=== PATIENT | female | born 1965 | race Caucasian/White ===

== ENCOUNTER 2019-08-03 18:04 | Emergency (ER) | payer MEDICARE, MEDICAID ==
[2019-08-03] MEDS ORDERED: DOXYcycline CAP(*) 100 MG PO ONE (20:14)
--- NOTE | 2019-08-03 20:18 | ED ---
Skin Complaint - HPI Summary HPI Summary: 54 year old female presents with rash for the past couple months. But states rash seems to be getting close to her right eye. She states she has been on many courses of antibiotics by her primary. States she just has a course of Keflex on thursday which did not help her symptoms much. She denies any fevers or chills. 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 She is suppose to see dermatology on Thursday. She states there has been yellow crusty drainage from the wounds. She states she's been drying out the area with tea tree oil which seems to be helping. She denies any history of MRSA. She has no medical conditions. - History of Current Complaint Chief Complaint: EDRashSkinAbscess Time Seen by Provider: 08/03/19 20:01 Stated Complaint: RASH PER PT Pain Intensity: 0 - Allergy/Home Medications Allergies/Adverse Reactions: Allergies Allergy/AdvReac Type Severity Reaction Status Date / Time No Known Allergies Allergy Verified 08/03/19 18:10 Home Medications: Home Medications DOXYcycline CAP(*) [DOXYcycline 100MG CAP(*)] 100 mg PO BID #13 cap 08/03/19 [Rx ] Mupirocin 2% OINT* [Bactroban 2 % Oint*] 1 applic TOPICAL BID #1 tube 08/03/19 [ Rx] PMH/Surg Hx/FS Hx/Imm Hx Endocrine/Hematology History: Denies: Hx Anticoagulant Therapy Respiratory History: Denies: Hx Asthma - Cancer History Hx Chemotherapy: No Hx Radiation Therapy: No Infectious Disease History: No Infectious Disease History: Denies: Traveled Outside the [place] in Last 30 Days - Family History Known Family History: Positive: Non-Contributory - Social History Substance Use Type: Reports: None Smoking Status (MU): Unknown if Ever Smoked Review of Systems Negative: Fever Negative: Chest Pain Negative: Shortness Of Breath Positive: Rash All Other Systems Reviewed And Are Negative: Yes Physical Exam Triage Information Reviewed: Yes Vital Signs On Initial Exam: Initial Vitals Temp Pulse Resp BP Pulse Ox 99.0 F 90 16 157/94 99 08/03/19 18:07 08/03/19 18:07 08/03/19 18:07 08/03/19 18:07 08/03/19 18:07 Vital Signs Reviewed: Yes Appearance: Positive: Well-Appearing Skin: Positive: Warm, Dry, Other - papular and pustular rash with surrounding erythema to face, no erythema around eye Head/Face: Positive: Normal Head/Face Inspection Eyes: Positive: Normal, Conjunctiva Clear ENT: Positive: Pharynx normal Respiratory/Lung Sounds: Positive: Clear to Auscultation, Breath Sounds Present Cardiovascular: Positive: Normal, RRR Musculoskeletal: Positive: Normal Neurological: Positive: Normal Psychiatric: Positive: Normal Procedures - Sedation Patient Received Moderate/Deep Sedation with Procedure: No Diagnostics - Vital Signs Vital Signs Temp Pulse Resp BP Pulse Ox 08/03/19 18:07 99.0 F 90 16 157/94 99 - Laboratory Lab Statement: Any lab studies that have been ordered have been reviewed, and results considered in the medical decision making process. Course/Dx - Course Course Of Treatment: 54 year old female presents with rash for the past couple months. But states rash seems to be getting close to her right eye. She states she has been on many courses of antibiotics by her primary. States she just has a course of Keflex on thursday which did not help her symptoms much. She denies any fevers or chills. 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 She is suppose to see dermatology on Thursday. She states there has been yellow crusty drainage from the wounds. She states she's been drying out the area with tea tree oil which seems to be helping. She denies any history of MRSA. She has no medical conditions. On exam has papular and pustular lesions across face with some surrounding erythema. No signs of periorbial cellulitis. We'll try treatment with a course of doxycycline and have apply mupirocin. Told to follow dermatology. Patient understands and agrees with the plan. - Differential Diagnoses - Skin Complaint Differential Diagnoses: Abscess, Cellulitis, Contact Dermatitis - Diagnoses Provider Diagnoses: Rash Discharge ED - Sign-Out/Discharge Documenting (check all that apply): Patient Departure - Discharge Plan Condition: Good Disposition: HOME Prescriptions: DOXYcycline CAP(*) [DOXYcycline 100MG CAP(*)] 100 mg PO BID #13 cap Mupirocin 2% OINT* [Bactroban 2 % Oint*] 1 applic TOPICAL BID #1 tube Referrals: Joanne Hyman MD [Primary Care Provider] - Additional Instructions: take doxycycline twice a day for 7 days apply mupirocin twice a day follow up with primary within 5 days Return to ED if develop any new or worsening symptoms - Billing Disposition and Condition Condition: GOOD Disposition: Home
[2019-08-03 21:15] VITALS: BP 131/83
== END 2019-08-03 21:06 | disposition home or self-care (01) ==
LOC: ED 18:04
DX: R21 Rash and other nonspecific skin eruption (principal)
CPT/HCPCS: 99282; A9270-GY

== ENCOUNTER 2023-07-08 01:58 | Inpatient (IN) ==
[2023-07-08 02:29] LABS: ABS Basophils 0.1 10^3/uL (0.0-0.1); ABS Eosinophils 0.5 10^3/uL (0.0-0.5); ABS Lymphocytes 3.7 10^3/uL (1.0-4.8); ABS Monocytes 0.6 10^3/uL (0.0-0.9); ABS Nucleated RBC 0.01 10^3/ul; Eosinophil % 5.3 %; Hemoglobin 14.9 g/dL (11.5-14.3); Lymphocyte % 37.3 %; Mean Corpuscular Hemoglobin 30.2 pg (27-33); Mean Corpuscular Hgb Conc 34.6 g/dL (31-36); Mean Corpuscular Volume 87.2 fL (80-97); Mean Platelet Volume 7.3 fL (7.5-11.2); Nucleated Red Blood Cells % 0.1 %/100WBC (0.0-0.8); Platelet Count 331 10^3/uL (150-450); Red Blood Count 4.94 10^6/uL (3.63-4.92); Red Cell Distribution Width 14.1 % (12-17)
[2023-07-08 03:01] LABS: ALT 30 U/L (7-52); Albumin 3.6 g/dL (3.2-5.2); Albumin/Globulin Ratio 1.2 (1-3); Alkaline Phosphatase 100 U/L (35-149); Anion Gap 9 mmol/L (2-16); Blood Urea Nitrogen 9 mg/dL (6-24); C Reactive Protein 10.22 mg/L (<8.01); CO2 Carbon Dioxide 20 mmol/L (22-32); Calcium 8.1 mg/dL (8.6-10.3); Chloride 110 mmol/L (101-111); Creatinine, Serum 0.71 mg/dL (0.51-0.95); Glucose 114 mg/dL (70-100); Sodium 139 mmol/L (135-145); Total Bilirubin 0.6 mg/dL (0.2-1.0); Total Protein 6.6 g/dL (6.4-8.9); eGFR CKD-EPI 99.1 (>60)
[2023-07-08] MEDS ORDERED: Albuterol HFA INHALER 8 gm MDI INH PRN (04:42)
[2023-07-08] MEDS: Enoxaparin 40 MG/0.4 ML SYR SUBCUT SCH (06:05)
[2023-07-08] MEDS: Magnesium Sulfate 2 gm BAG 2 GM/50 ML BAG IVPB ONE (07:18)
[2023-07-08] MEDS: Albuterol/Ipratropium NEB.SOL (2.5/0.5 MG) 3 ML NEB.SOLN INH SCH ×2 (08:08→13:02)
[2023-07-08] MEDS: methylPREDNISolone SOD SUCC 125 mg 2 ML VIAL IV ONE (10:05)
[2023-07-08] MEDS ORDERED: Albuterol/Ipratropium NEB.SOL (2.5/0.5 MG) 3 ML NEB.SOLN INH PRN (16:21)
[2023-07-08] MEDS ORDERED: methylPREDNISolone SOD SUCC 40 mg/ml 1 ml VIAL IV SCH (17:00)
[2023-07-08] MEDS: Iohexol 350 (CONTRAST) 500 ML MDV IV ONE (19:44)
[2023-07-08] MEDS: methylPREDNISolone SOD SUCC 40 mg/ml 1 ml VIAL IV SCH (20:13)
[2023-07-09 06:35] LABS: Hematocrit 43.6 % (35-45); Hemoglobin 14.3 g/dL (11.5-14.3); Mean Corpuscular Hemoglobin 28.9 pg (27-33); Mean Corpuscular Hgb Conc 32.9 g/dL (31-36); Mean Corpuscular Volume 87.8 fL (80-97); Mean Platelet Volume 7.6 fL (7.5-11.2); Platelet Count 334 10^3/uL (150-450); Red Blood Count 4.96 10^6/uL (3.63-4.92); Red Cell Distribution Width 13.9 % (12-17); White Blood Count 25.2 10^3/uL (3.8-11.8)
[2023-07-09 06:53] LABS: Calcium 9.9 mg/dL (8.6-10.3); Creatinine, Serum 0.75 mg/dL (0.51-0.95); Magnesium 2.4 mg/dL (1.9-2.7); Phosphorus 3.2 mg/dL (2.5-5.0); Potassium 4.3 mmol/L (3.5-5.0); eGFR CKD-EPI 92.8 (>60)
[2023-07-09 09:47] LABS: ABS Lymphocytes 2.1 10^3/uL (1.0-4.8); ABS Monocytes 0.8 10^3/uL (0.0-0.9); ABS Neutrophils 22.2 10^3/uL (1.5-7.6); ABS Nucleated RBC 0.01 10^3/ul; Lymphocyte % 8.3 %
[2023-07-09] MEDS: methylPREDNISolone SOD SUCC 40 mg/ml 1 ml VIAL IV SCH (10:09)
[2023-07-09] MEDS: Albuterol/Ipratropium NEB.SOL (2.5/0.5 MG) 3 ML NEB.SOLN INH SCH (10:58)
[2023-07-09] MEDS: Albuterol HFA INHALER 8 gm MDI INH PRN (21:25)
[2023-07-10 05:23] LABS: Hematocrit 41.8 % (35-45); Hemoglobin 13.4 g/dL (11.5-14.3); Mean Corpuscular Hemoglobin 29.5 pg (27-33); Mean Corpuscular Volume 92.2 fL (80-97); Red Blood Count 4.53 10^6/uL (3.63-4.92); Red Cell Distribution Width 15.3 % (12-17); White Blood Count 19.7 10^3/uL (3.8-11.8)
[2023-07-10 06:09] LABS: ABS Lymphocytes 1.3 10^3/uL (1.0-4.8); ABS Monocytes 0.6 10^3/uL (0.0-0.9); ABS Neutrophils 17.8 10^3/uL (1.5-7.6); Lymphocyte % 6.6 %; Tear Drop Cells 3+
[2023-07-10 07:15] LABS: Calcium 9.7 mg/dL (8.6-10.3); Creatinine, Serum 0.76 mg/dL (0.51-0.95); Magnesium 2.3 mg/dL (1.9-2.7); Phosphorus 3.1 mg/dL (2.5-5.0); Potassium 4.5 mmol/L (3.5-5.0); eGFR CKD-EPI 91.3 (>60)
[2023-07-10 15:13] VITALS: BP 118/68
[2023-07-11] MEDS ORDERED: Albuterol/Ipratropium NEB.SOL (2.5/0.5 MG) 3 ML NEB.SOLN INH PRN (03:17)
== END 2023-07-10 18:10 | disposition home or self-care (01) | DRG 202 ==
LOC: EDHOLD 01:58 → ED 01:58 → OBSVTOIN 04:07 → SUATTDRO 04:07 → INTOOBSV 04:07 → EDHOLD 07:27 → MEDTELE 13:32
PROVIDERS: ADMIT Internal Medicine; ATTEND Hospitalist